=== PATIENT | male | born 1965 | race Caucasian/White ===

== ENCOUNTER 2017-12-31 12:33 | Emergency (ER) | payer BC ==
[~2017-12-31] VITALS: Ht 182.9 cm; Wt 90.0 kg
[2017-12-31] MEDS ORDERED: GEMCITABINE IV (12:46)
[2017-12-31] MEDS ORDERED: ADVIL200 MG PO (12:46)
[2017-12-31] MEDS ORDERED: OXYCODONE HCL5 MG PO (12:47)
[2017-12-31 13:28] LABS: IMMATURE GRANULOCYTES 1.1 % (0.0-5.0); MEAN CELL VOLUME 90.8 fL CALC (80.0-100.0); MEAN CORPUSCULAR HGB 28.6 pG CALC (26.0-32.0); MEAN CORPUSCULAR HGB CONC 31.5 g/L CALC (32.0-36.0); NEUT# 5.5 thou/uL (1.82-7.42); RED BLOOD COUNT 3.71 mill/uL (4.70-6.10); RED CELL DISTRI WIDTH 14.8 % (11.5-15.5)
[2017-12-31 13:33] LABS: HEMATOCRIT 33.7 % (39.0-50.0); HEMOGLOBIN 10.6 g/dl (14.0-18.0)
[2017-12-31 13:43] LABS: ALKALINE PHOSPHATASE 73 u/l (38-126); AMYLASE 67 u/l (30-110); ANION GAP 10 (6-22 (CALC)); BILIRUBIN, TOTAL 0.5 mg/dL (0.0-1.4); BUN 17 mg/dL (9-20); BUN/CREATININE RATIO 21 (12-20 (CALC)); CARBON DIOXIDE 34 mmol/l (22-30); CHLORIDE 98 mmol/l (95-108); CREATININE 0.8 mg/dL (0.7-1.3); GFR > 60 ML/MIN (>=60 (CALC)); GFR FOR AFR.AMER. > 60 ML/MIN (>=60 (CALC)); LIPASE 45 u/l (23-300); POTASSIUM 3.4 mmol/l (3.5-5.1); SGPT/ALT 77 u/l (21-72); SODIUM 139 mmol/l (137-146); TOTAL PROTEIN 6.9 g/dL (6.3-8.2)
[2017-12-31 13:59] LABS: ALBUMIN 3.7 g/dL (3.2-5.0); SGOT/AST 47 u/l (17-59)
[2017-12-31] MEDS ORDERED: PREVACID30 M1 PO (15:52)
[2017-12-31] MEDS ORDERED: ZOFRAN ODT4 MG PO (15:52)
[2017-12-31 16:03] VITALS: BP 118/74
[2017-12-31 16:03] LABS: URINE BILIRUBIN - DIPSTICK NEGATIVE (NEGATIVE); URINE BLOOD DIPSTICK NEGATIVE (NEGATIVE); URINE COLOR YELLOW; URINE GLUCOSE - DIPSTICK NEGATIVE (NEGATIVE); URINE KETONE NEGATIVE (NEGATIVE); URINE LEUK ESTERASE NEGATIVE (NEGATIVE); URINE NITRITE - DIPSTICK NEGATIVE (Negative); URINE PH 7.5 (4.5-8.0); URINE PROTEIN - DIPSTICK NEGATIVE (NEG-TRACE); URINE UROBILINOGEN - DIPSTICK 0.2 E.U./dL (0.2)
[2017-12-31 16:08] LABS: URINE CLARITY CLEAR
== END 2017-12-31 16:24 | disposition home or self-care (01) | DRG 392 ==
LOC: ED 12:33
PROVIDERS: Emergency Medicine
DX: R11.10 Vomiting, unspecified (principal); K59.00 Constipation, unspecified; Z85.118 Personal history of other malignant neoplasm of bronchus and lung
CPT/HCPCS: S0164

== ENCOUNTER 2018-01-26 08:24 | Inpatient (IN) | payer BC ==
--- NOTE | 2018-01-23 19:30 | NUR ---
BEDSIDE REPORT RECEIVED FROM MEHDI RÍOS. PT SITTING UP IN BED WITH FAMILY AT BEDSIDE; ALERT AND ORIENTED. C/O MODERATE RIGHT SHOULDER PAIN AND STATES THAT HE WOULD LIKE TO TAKE MORPHINE AT HS. RESPIRATIONS EVEN AND UNLABORED ON ROOM AIR. PLAN OF CARE DISCUSSED. PT ENCOURAGED TO VERBALIZE CONCERNS. STATES UNDERSTANDING AND VERBALIZES CONCERNS ABOUT MOVING HIS BOWELS. WARM PRUNE JUICE AND COFFEE OFFERED, HOWEVER, PT DECLINED AND STATES THAT HE WILL TALK TO THE MD IN THE MORNING ABOUT IT. SAFETY MEASURES IN PLACE. CALL LIGHT WITHIN REACH.
[~2018-01-26] VITALS: Ht 185.4 cm; Wt 82.0 kg
[~2018-01-26 08:24] MED LIST: ADVIL200 MG PO; GEMCITABINE IV; OXYCODONE HCL5 MG PO; PREVACID30 M1 PO; ZOFRAN ODT4 MG PO
[2018-01-26] MEDS ORDERED: OXYCONTIN10 MG PO (08:49)
--- NOTE | 2018-01-26 08:50 | NUR ---
PATIENT TO RADIOLOGY DEPARTMENT FROM TRIAGE.
--- NOTE | 2018-01-26 09:01 | NUR ---
PATIENT RETURNS FROM RADIOLOGY, AT BEDSIDE.
[2018-01-26 09:12] LABS: HEMATOCRIT 33.3 % (39.0-50.0); HEMOGLOBIN 10.6 g/dl (14.0-18.0); IMMATURE GRANULOCYTES 0.5 % (0.0-5.0); MEAN CELL VOLUME 89.3 fL CALC (80.0-100.0); MEAN CORPUSCULAR HGB 28.4 pG CALC (26.0-32.0); MEAN CORPUSCULAR HGB CONC 31.8 g/L CALC (32.0-36.0); NEUT# 10.37 thou/uL (1.82-7.42); RED BLOOD COUNT 3.73 mill/uL (4.70-6.10); RED CELL DISTRI WIDTH 15.4 % (11.5-15.5)
--- NOTE | 2018-01-26 09:28 | NUR ---
PATIENT REPORTS PAIN TO RIGHT FLANK/ BACK AREA RATES 7/10 AT THIS TIME. REPORTS BEING ON CHEMOTHERAPY FOR SKIN, LYMPH NODE CANCER. PATIENT VERBALIZED CONCERN FOR KIDNEY FUNCTION. INFORMED OF PATIENT REQUEST FOR PAIN MEDICATION AND RENAL FUNCTION.
--- NOTE | 2018-01-26 09:32 | NUR ---
XRAY AT BEDSIDE FOR CHEST 1V, PATIENT REFUSED EXAM.
[2018-01-26 09:33] LABS: ALBUMIN 3.9 g/dL (3.2-5.0); ALKALINE PHOSPHATASE 89 u/l (38-126); ANION GAP 12 (6-22 (CALC)); BILIRUBIN, TOTAL 0.4 mg/dL (0.0-1.4); BUN 19 mg/dL (9-20); BUN/CREATININE RATIO 19 (12-20 (CALC)); CARBON DIOXIDE 36 mmol/l (22-30); CHLORIDE 97 mmol/l (95-108); GFR > 60 ML/MIN (>=60 (CALC)); GFR FOR AFR.AMER. > 60 ML/MIN (>=60 (CALC)); LIPASE 218 u/l (23-300); SGOT/AST 59 u/l (17-59); SGPT/ALT 79 u/l (21-72); SODIUM 141 mmol/l (137-146); TOTAL PROTEIN 7.3 g/dL (6.3-8.2)
--- NOTE | 2018-01-26 09:45 | NUR ---
Pt reports nausea. RBVO for 12.5 mg phenergan ivp x 1 now.
--- NOTE | 2018-01-26 09:57 | NUR ---
PATIENT MEDICATED, TOLERATED WELL. PATIENT REPORTS PAIN 4/10 AT THIS TIME TO RIGHT SIDE OF BODY. +1 PITTING EDEMA NOTED TO RIGHT LOWER EXTERMITY. PATIENT REPORTS HAVING THIS XWEEKS. WILL CONTINUE TO MONITOR, CALL LIGHT WITHIN REACH. AT BEDSIDE.
--- NOTE | 2018-01-26 10:49 | NUR ---
PATIENT MEDICATED PER MD ORDER. POTASSIUM PILLS GIVEN WITH PUDDING. WILL CONTIUE TO MONITOR.
--- NOTE | 2018-01-26 11:10 | NUR ---
PT RESTING SUPINE WIHT EYES CLOSED. RESPONDS APPROPRIATELY. STATES PAIN LEVEL HAS IMPROVED TO 2/10.
--- NOTE | 2018-01-26 11:26 | NUR ---
INITIATED RECLAST IV ORDERED 200ML/HR WITH VENTED TUBING. EXPLAINED TO PT AND SPOUSE.
--- NOTE | 2018-01-26 11:26 | NUR ---
INIIIATED RECLAST IV @ 400ML/HR FOR 4MG/80ML. DISCUSSED WITH PT AND SPOUSE
--- NOTE | 2018-01-26 11:29 | NUR ---
EMPTIED URINAL OF 675CC CLEAR YELLOW URINE, UA OBTAINED
[2018-01-26 11:37] LABS: URINE BILIRUBIN - DIPSTICK NEGATIVE (NEGATIVE); URINE BLOOD DIPSTICK NEGATIVE (NEGATIVE); URINE CLARITY SL CLOUDY; URINE COLOR YELLOW; URINE GLUCOSE - DIPSTICK NEGATIVE (NEGATIVE); URINE KETONE NEGATIVE (NEGATIVE); URINE LEUK ESTERASE NEGATIVE (NEGATIVE); URINE NITRITE - DIPSTICK NEGATIVE (Negative); URINE PROTEIN - DIPSTICK NEGATIVE (NEG-TRACE); URINE UROBILINOGEN - DIPSTICK 0.2 E.U./dL (0.2)
--- NOTE | 2018-01-26 11:44 | NUR ---
EMPTIED URINAL OF 650CC PALE STRAW COLORED URINE. PT STATES PAIN IS RETURNING 7/10 TO LOW BACK
--- NOTE | 2018-01-26 12:22 | NUR ---
REPORT PROVIDED TO MEHDI RÍOS.
--- NOTE | 2018-01-26 12:32 | NUR ---
PT CAME FROM ER VIA STRETCHER BY ESE. STAND BY ASSIST TO SCALE THEN TO BED. IN ROOM. SAFETY PRECAUTIONS REINOFRCED AND CALL LIGHT IN REACH.
--- NOTE | 2018-01-26 12:39 | NUR ---
PT TRANFERRED TO [facility] [place] [place] IN STABLE CONDITION VIA STRETCHER WITH NURSE, MEHDI LYNN.
[2018-01-26 12:43] VITALS: BP 147/89
[2018-01-26 13:43] LABS: ANION GAP 8 (6-22 (CALC)); BUN 18 mg/dL (9-20); BUN/CREATININE RATIO 18 (12-20 (CALC)); CARBON DIOXIDE 38 mmol/l (22-30); CHLORIDE 100 mmol/l (95-108); GFR > 60 ML/MIN (>=60 (CALC)); GFR FOR AFR.AMER. > 60 ML/MIN (>=60 (CALC)); SODIUM 143 mmol/l (137-146)
--- NOTE | 2018-01-26 13:48 | NUR ---
NOTIFIED NIC MARTÍNEZ OF CALCIUM 13.5 FOR PT. NO ORDERES RECEIVED AT THIS TIME.
--- NOTE | 2018-01-26 16:03 | NUR ---
ASSESSMENT DONE TELE IN PLACE. RESPS EVEN AND UNLABORED. PT IS A&O X3. PT STATED PAIN IN RIGHT SHOULDER 11/21 BUT REFUSED PAIN MEDICATION AT THIS TIME. NS 200ML/HR INFUSING WELL. IN ROOM. CALL LIGHT IN REACH.
[2018-01-26 16:12] VITALS: BP 137/81
[2018-01-26 18:31] LABS: ANION GAP 8 (6-22 (CALC)); BUN 18 mg/dL (9-20); BUN/CREATININE RATIO 19 (12-20 (CALC)); CARBON DIOXIDE 37 mmol/l (22-30); CHLORIDE 101 mmol/l (95-108); GFR > 60 ML/MIN (>=60 (CALC)); GFR FOR AFR.AMER. > 60 ML/MIN (>=60 (CALC)); POTASSIUM 2.9 mmol/l (3.5-5.1); SODIUM 142 mmol/l (137-146)
[2018-01-26 21:06] VITALS: BP 143/89
--- NOTE | 2018-01-27 | NUR ---
PT ATTEMPTED TO HAVE A BM WITH NO SUCCESS. INDEPENDENT IN ROOM. STATES THAT MORPHINE WAS EFFECTIVE FOR PAIN. IV FLUIDS INFUSING WITHOUT DIFFICULTY; IV SITE APPEARS HEALTHY. NEW ORDERS FOR PO POTASSIUM AND IV MAGNESIUM WHICH IS INFUSING CURRENLTY; PT TOLERATING WELL. NO REQUESTS OR CONCERNS AT THIS TIME. REMAINS AT BEDSIDE. SAFETY MEASURES IN PLACE. CALL LIGHT WITHIN REACH.
[2018-01-27 00:50] VITALS: BP 140/87
--- NOTE | 2018-01-27 04:16 | NUR ---
PT ASLEEP AT THIS TIME WITH NO SIGNS OF DISTRESS. NO ACUTE CHANGES IN CONDITION THROUGHT THE NIGHT. SAFETY MEASURES IN PLACE. CALL LIGHT WITHIN REACH.
[2018-01-27 04:51] VITALS: BP 139/86
[2018-01-27 04:58] LABS: HEMATOCRIT 32.3 % (39.0-50.0); HEMOGLOBIN 10.3 g/dl (14.0-18.0); MEAN CORPUSCULAR HGB 28.7 pG CALC (26.0-32.0); MEAN CORPUSCULAR HGB CONC 31.9 g/L CALC (32.0-36.0); RED BLOOD COUNT 3.59 mill/uL (4.70-6.10); RED CELL DISTRI WIDTH 15.9 % (11.5-15.5)
[2018-01-27 05:20] LABS: ALBUMIN 3.2 g/dL (3.2-5.0); ALKALINE PHOSPHATASE 86 u/l (38-126); ANION GAP 11 (6-22 (CALC)); BILIRUBIN, TOTAL 0.5 mg/dL (0.0-1.4); BUN 17 mg/dL (9-20); BUN/CREATININE RATIO 19 (12-20 (CALC)); CARBON DIOXIDE 31 mmol/l (22-30); CHLORIDE 103 mmol/l (95-108); CREATININE 0.9 mg/dL (0.7-1.3); GFR > 60 ML/MIN (>=60 (CALC)); GFR FOR AFR.AMER. > 60 ML/MIN (>=60 (CALC)); POTASSIUM 3.4 mmol/l (3.5-5.1); SGOT/AST 41 u/l (17-59); SGPT/ALT 58 u/l (21-72); SODIUM 142 mmol/l (137-146); TOTAL PROTEIN 6.1 g/dL (6.3-8.2)
[2018-01-27 05:21] LABS: MAGNESIUM 2.3 mg/dL (1.6-2.3)
--- NOTE | 2018-01-27 07:10 | NUR ---
REPORT RECEIVED FROM MEHDI RAMÍREZ;PT APPEARS TO BE SLEEPING IN SEMI FOWLERS POSITION WITH SPOUSE AT BEDSIDE;RESPIRATIONS EVEN AND UNLABORED ON RA;NO S/S OF DISTRESS NOTED;IV FLUIDS INFUSING @ 200ML/HR WITH EASE;TELE MONITOR IN PLACE;FALL PRECAUTIONS NOTED WITH BED IN THE LOWEST POSITION;CALL LIGHT IN REACH;WILL CONTINUE TO MONITOR
[2018-01-27 08:35] VITALS: BP 126/80
--- NOTE | 2018-01-27 08:35 | NUR ---
PT RESTING IN SEMI FOWLERS POSITION WITH SPOUSE AT BEDSIDE;PT COMPLAINS OF ABDOMINAL DISCOMFORT DUE TO LACK OF BM,LAST BM 01/22/18;ANNITA LOPEZ,ANRP MADE AWARE BY MEHDI CARBALLO AND NEW ORDERS FOR MOM,MIRLAX,GLYCERIN SUP RECEIVED AND TO BE ADMINISTERED;VS OBTAINED AND ASSESSMENT COMPLETED;CURRENT TEMP 100.0,BLANKETS REMOVED,AC LOWERED AND PT TO GET A COOL SHOWER;RESPIRATIONS EVEN AND UNLABORED ON RA,CLEAR LUNG SOUNDS NOTED;ABDOMEN SOFT ON PALPATION AND ACTIVE IN ALL 4 QUADRANTS,TENDERNESS NOTED;STRONG PEDAL PULSES;#20G TO RAC INFUSING NS @ 100ML/HR,SITE APPEARS HEALTHY;PT MEDICATED WITH PRN MORPHINE 2MG IVP PER REQUEST FOR RT SHOULDER AND ABDOMINAL PAIN RATING 7/10 ON THE PAIN SCALE;TELE MONITOR NOTED;SKIN INTACT;CHOCOLATE MILK PROVIDED PER REQUEST;ENCOURAGED PT TO CALL FOR ASSISTANCE IF NEEDED;CALL LIGHT IN REACH;WILL CONTINUE TO MONITOR
--- NOTE | 2018-01-27 10:10 | NUR ---
TEMP RE-CHECK 100.1,TYLENOL 650MG PO ADMINISTERED AT THIS TIME;BLANKETS REMOVED AND AC LOWERED;WILL MONITOR FOR EFFECTIVENESS
[2018-01-27 11:00] VITALS: BP 123/76
--- NOTE | 2018-01-27 11:02 | NUR ---
TEMP RE-CHECK 99.4
--- NOTE | 2018-01-27 11:40 | NUR ---
PT APPEARS TO BE SLEEPING IN HIGH FOWLERS POSITION,WAKES TO VERBAL STIMULI;PT REPORTS PAIN HAS DECREASED AT THIS TIME;RESPIRATIONS EVEN AND UNLABORED ON RA;IV SITE REMAINS PATENT TO RAC INFUSING NS WITH EASE;TELE MONITOR IN PLACE;NO NEW COMPLAINTS;ENCOURAGED TO CALL FOR ASSISTANCE IF NEEDED;CALL LIGHT IN REACH;WILL CONTINUE TO MONITOR
--- NOTE | 2018-01-27 14:45 | NUR ---
PT RESTING IN SEMI FOWLERS POSITION WITH SPOUSE AT BEDSIDE;PT REPORTS RT SHOULDER AND ABDOMINAL PAIN RATING 7/10 ON THE PAIN SCALE AND REQUESTS PAIN MEDICATION;PT MEDICATED WITH PRN DILAUDID 2MG IVP, S/S OF MEDICATION REACTION DISCUSSED AND PT VERBALIZES UNDERSTANDING R/T FIRST TIME TAKING THIS MEDICATION;I.S. AT BEDSIDE AND PT DEMONSTRATED USE;PT EDUCATED ON 10X PER HOUR WHILE AWAKE,GOAL SET TO 1000.PT DENIES ANY OTHER CURRENT NEEDS;WILL CONTINUE TO MONITOR
[2018-01-27 15:02] LABS: URINE BILIRUBIN - DIPSTICK NEGATIVE (NEGATIVE); URINE BLOOD DIPSTICK TRACE-LYSED (NEGATIVE); URINE CLARITY CLEAR; URINE COLOR YELLOW; URINE GLUCOSE - DIPSTICK NEGATIVE (NEGATIVE); URINE KETONE NEGATIVE (NEGATIVE); URINE LEUK ESTERASE NEGATIVE (NEGATIVE); URINE NITRITE - DIPSTICK NEGATIVE (Negative); URINE PROTEIN - DIPSTICK NEGATIVE (NEG-TRACE); URINE SPECIFIC GRAVITY 1.015; URINE UROBILINOGEN - DIPSTICK 0.2 E.U./dL (0.2)
--- NOTE | 2018-01-27 15:20 | NUR ---
PT REPORTS THAT PAIN TO RIGHT SHOULDER AND ABDOMEN HAS DECREASED TO A 2/10 ON THE PAIN SCALE;RESPIRATIONS EVEN AND UNLABORED ON RA,WITH SLIGHT WHEEZING STARTING AT THIS TIME;PT MADE AWARE OF PRN ROBITUSSIN ORDER AND VERBALIZES UNDERSTANDING IF NEEDED,REMINDED TO USE I.S. @ BEDSIDE;IV FLUIDS CONTINUE TO INFUSE WITH EASE TO RAC;TELE MONITOR IN PLACE;PT STATES "I JUST WANNA SLEEP NOW";PT INSTRUCTED TO CALL FOR ASSISTANCE IF NEEDED;COMMODE AT BEDSIDE;FALL PRECAUTIONS IN PLACE WITH CALL LIGHT IN REACH;WILL CONTINUE TO MONITOR
[2018-01-27 16:00] VITALS: BP 123/79
--- NOTE | 2018-01-27 19:50 | NUR ---
BEDSIDE REPORT RECEIVED FROM RUBENS FONSECA. PT SITTING UP IN BED WITH AT BEDSIDE; ALERT AND ORIENTED. CURRENTLY USING IS. C/O MILD RIGHT SHOULDER PAIN AND REQUESTS PAIN MEDS TO BE GIVEN AT HS. ALSO DECLINES MIDNIGHT VS AT THIS TIME STATING THAT HE WANTS TO SLEEP. RESPIRATIONS EVEN AND UNLABORED ON ROOM AIR. PLAN OF CARE REVIEWED. PT ENCOURAGED TO VERBALIZE CONCERNS. STATES UNDERSTANDING. SAFETY MEAUSURES IN PLACE. CALL LIGHT WITHIN REACH.
[2018-01-27 20:12] VITALS: BP 138/79
--- NOTE | 2018-01-27 22:59 | NUR ---
PT'S OXYGEN SATURATION DROPS INTO THE 70'S WHILE ASLEEP AND HE STATES THAT IT WAKES HIM UP. OXYGEN APPLIED AT 2L VIA NC. WILL REASSESS.
--- NOTE | 2018-01-28 00:05 | NUR ---
PT SITTING UP IN BED WITH EYES CLOSED AND NO SIGNS OF DISTRESS. RESPIRATIONS EVEN AND UNLABORED ON OXYGEN. REMAINS AT BEDSIDE. PT DECLINED MIDNIGHT VITALS; CURRENTLY SR 97 ON TELEMETRY. ALL REQUESTS AND CONCERNS MET. INDEPENDENT IN ROOM. IV FLUIDS INFUSING WITHOUT DIFFICULTY; IV SITE APPEARS HEALTHY. SAFETY MEASURES IN PLACE. CALL LIGHT WITHIN REACH.
--- NOTE | 2018-01-28 04:19 | NUR ---
PT ASLEEP AT THIS TIME WITH NO SIGNS OF DISTRESS. RESPIRATIONS EVEN AND UNLABORED OXYGEN. NO ACUTE CHANGES IN CONDITION THROUGHOUT THE NIGHT. SAFETY MEASURES IN PLACE. CALL LIGHT WITHIN REACH.
[2018-01-28 04:56] VITALS: BP 127/81
--- NOTE | 2018-01-28 07:16 | NUR ---
REPORT RECEIVED BY LUIS ENRIQUE. PT IS SLEEPING IN BED WITH NO S/S OF DISTRESS NOTED. CALL LIGHT IN REACH.
[2018-01-28 07:44] VITALS: BP 127/82
[2018-01-28 08:23] LABS: HEMATOCRIT 27.8 % (39.0-50.0); HEMOGLOBIN 8.8 g/dl (14.0-18.0); IMMATURE GRANULOCYTES 0.6 % (0.0-5.0); MEAN CELL VOLUME 90.6 fL CALC (80.0-100.0); MEAN CORPUSCULAR HGB 28.7 pG CALC (26.0-32.0); MEAN CORPUSCULAR HGB CONC 31.7 g/L CALC (32.0-36.0); NEUT# 8.28 thou/uL (1.82-7.42); RED BLOOD COUNT 3.07 mill/uL (4.70-6.10)
--- NOTE | 2018-01-28 08:41 | NUR ---
ASSESSMENT DONE . MEDICATED PT WITH DILAUDID FOR PAIN SEE EMAR. PT LUNG SOUND CLEAR/WHEEZES. O2 AT 2L/MIN VIA NC. PT IS A&O X3. TELE IN PLACE. PT DENIES ANY OTHER NEEDS AT THIS TIME. SAFETY PRECAUTIONS REINFORCED AND CALL LIGHT IN REACH.
[2018-01-28 08:49] LABS: ANION GAP 10 (6-22 (CALC)); BUN 15 mg/dL (9-20); BUN/CREATININE RATIO 22 (12-20 (CALC)); CARBON DIOXIDE 30 mmol/l (22-30); CHLORIDE 102 mmol/l (95-108); CREATININE 0.7 mg/dL (0.7-1.3); GFR > 60 ML/MIN (>=60 (CALC)); GFR FOR AFR.AMER. > 60 ML/MIN (>=60 (CALC)); POTASSIUM 3.3 mmol/l (3.5-5.1); SODIUM 138 mmol/l (137-146)
[2018-01-28 12:00] VITALS: BP 132/84
--- NOTE | 2018-01-28 12:35 | NUR ---
MEDICATED PT WITH DILAUDID FOR PAIN SEE EMAR. PT DENIES ANY OTHER NEEDS AT THIS TIME. IN ROOM. CALL LIGHT IN REACH.
--- NOTE | 2018-01-28 15:30 | NUR ---
PT IS RESTING IN BED VISITING WITH FAMILY. PT DENIES NEEDS AT THIS TIME. CALL LIGHT IN REACH.
[2018-01-28 15:45] VITALS: BP 152/97
--- NOTE | 2018-01-28 19:50 | NUR ---
PATIENT RESTING IN BED WITH O2 VIA NASAL CANNULAIN PLACE. PATIENT IS AWAKE ALERT AND ORIENTEDX3 WITH HOARSE SPEECH. PATIENT C/O PAIN TO RIGHT NECK, RIGHT SHOULDER AND SIDE-7/10, MEDICATED WITH DILAUDID 2MG IVP VIA RIGHT AC IV SITE. SITE IS HEALTHY WITH IVF NS PATENT AND INFUSING AT 100CC/HR. TELE MONITORING DEVICE IN PLACE-ST. VOIDING QS YELLOW URINE IN URINAL. SOME SLIGHT SWELLING NOTED TO UE-PULSES ARE PRESENT AND CMS WNL.PATIENT WITH DIMINISHED BS TO RIGHT LUNG. ENCOURAGED USE OF IS Q1H WHILE AWAKE X REPS OF 10. ABLE TO DEMONSTRATE USE ALTHOUGH IS WEAK. SAFETY PRECAUTIONS REINFORCED. CALL LIGHT IN REACH. CALL LIGHT IN REACH.
[2018-01-28 20:33] VITALS: BP 130/83
--- NOTE | 2018-01-28 21:30 | NUR ---
PATIENT MEDICATED WITH LOPRESSOR 25MG PO ORDERED. PATIENT AND EDUCATED ON INDICATIONS. VERBALIZED UNDERSTANDING. PROVIDED WITH KYRGYZ ICE PER PATIENT REQUEST. LEFT ARM ELEVATED ON PILLOW FOR SWELLING. CALL LIGHT IN REACH. WILL CONT TO MONITOR.
--- NOTE | 2018-01-28 23:57 | NUR ---
PATIENT RESTING IN BED-WAS ABLE TO GET WASHED UP WITH THE ASSIST OF HIS . LEFT ARM WITH SWELLING NOTED-ELEVATED ON PILLOWS AND ICE PACK PROVIDED. PULSE IS STRONG CMS TO FINGERS WNL. DENIES ANY PAIN TO THE LEFT ARM. PATIENT C/O PAIN TO RIGHT NECK AND SHOULDER. MEDICATED WITH DILAUDID 2MG IVP FOR 7/10 PAIN SCALE. STAYING THE NIGHT. OFFERED COT BUT RESTING ON SOFA. IVF NS PATENT AND INFUSING VIA LEFT AC AT 100CC/HR. O2 VIA NASAL CANNULA IN PLACE AT 2LPM. SAFETY PRECAUTIONS REINFORCED. CALL LIGHT IN REACH. WILL CONT TO MONITOR.
[2018-01-29] VITALS (7 sets, daily range): BP systolic 113–148; BP diastolic 71–89
--- NOTE | 2018-01-29 04:08 | NUR ---
PATIENT WITH NO COMPLAINTS AT THIS TIME. AT BEDSIDE. O2 VIA NASAL CANNULA IN PLACE. IVF NS PATENT AND INFUSING AT 100CC/HR. LEFT ARM REMAINS ELEVATED ON PILLOWS. CALL LIGHT IN REACH. WILL CONT TO MONITOR.
--- NOTE | 2018-01-29 04:50 | NUR ---
PATIENT RESTING IN BED- AT BEDSIDE. PATIENT MEDICATED FOR 8/10 ON PAIN SCALE TO RIGHT NECK, SHOULDER AND ARM. LEFT ARM REMAINS SWOLLEN-ELEVATED 0ON PILLOWS. CALL LIGHT IN REACH. WILL CONT TO MONITOR.
[2018-01-29 05:30] LABS: HEMATOCRIT 28.6 % (39.0-50.0); HEMOGLOBIN 8.8 g/dl (14.0-18.0); IMMATURE GRANULOCYTES 0.7 % (0.0-5.0); MEAN CELL VOLUME 93.8 fL CALC (80.0-100.0); MEAN CORPUSCULAR HGB 28.9 pG CALC (26.0-32.0); MEAN CORPUSCULAR HGB CONC 30.8 g/L CALC (32.0-36.0); NEUT# 5.97 thou/uL (1.82-7.42); RED BLOOD COUNT 3.05 mill/uL (4.70-6.10); RED CELL DISTRI WIDTH 16.4 % (11.5-15.5)
[2018-01-29 05:42] LABS: ALBUMIN 2.9 g/dL (3.2-5.0); ALKALINE PHOSPHATASE 101 u/l (38-126); ANION GAP 11 (6-22 (CALC)); BILIRUBIN, TOTAL 0.4 mg/dL (0.0-1.4); BUN 15 mg/dL (9-20); BUN/CREATININE RATIO 21 (12-20 (CALC)); CARBON DIOXIDE 29 mmol/l (22-30); CHLORIDE 100 mmol/l (95-108); CREATININE 0.7 mg/dL (0.7-1.3); GFR > 60 ML/MIN (>=60 (CALC)); GFR FOR AFR.AMER. > 60 ML/MIN (>=60 (CALC)); POTASSIUM 3.5 mmol/l (3.5-5.1); SGOT/AST 39 u/l (17-59); SGPT/ALT 60 u/l (21-72); SODIUM 136 mmol/l (137-146); TOTAL PROTEIN 5.8 g/dL (6.3-8.2)
--- NOTE | 2018-01-29 07:05 | NUR ---
BEDSIDE REPORT RECEIVED BY FRANCINE. PT IS RESTING IN BED WITH NO S/S OF DISTRESS NOTED. PT DENIES NEEDS AT THIS TIME. CALL LIGHT IN REACH.
--- NOTE | 2018-01-29 09:31 | NUR ---
ASSESSMENT DONE . LUNG SOUND DIMINISHED. O2 AT 2L/MIN VIA NC. MEDICATED WITH DILAUDID FOR PAIN SEE EMAR. NS 100ML/HR INFUSING WELL. IN ROOM. SAFETY PRECAUTIONS REINFORCED AND CALL LIGHT IN REACH.
--- NOTE | 2018-01-29 12:25 | NUR ---
PT IS SITTING IN THE SIDE OF THE BED. PT STATED PAIN IS 4/10 IN NECK BUT PT REFUSED PAIN MEDICATION AT THIS TIME. CALL LIGHT IN REACH.
--- NOTE | 2018-01-29 16:05 | NUR ---
PT IS RESTING IN BED AND DENIES NEEDS AT THIS TIME. CALL LIGHT IN REACH.
--- NOTE | 2018-01-29 22:00 | NUR ---
PATIENT RESTING IN BED AFTER TAKING SHOWER WITH ASSIST OF HIS . PATIENT STATES THAT HE DID HAVE ANOTHER BM TONIGHT-ABD IS SOFT WITH ACTIVE BS. VOIDING QS YELLOW URINE. PATIENT MEDICATED FOR PAIN WITH DILAUDID 2MG IVP VIA RIGHT AC IV SITE-HEALTHY SITE AT THIS TIME. CONT TO WEAR O2 VIA NASAL CANNULA AT 2LPM. PATIENT CONT WITH DIMINISHED BS TO RIGHT LUNG WITH CLEAR TO THE LEFT. LEFT ARM WITH SOME SWELLING-LESS THAN LAST NIGHT-ELEVATED ON PILLOW. CMS TO LEFT FINGERS WNL AND RADIAL PULSES ARE STRONG. SAFETY PRECAUTIONS REINFORCED. CALL LIGHT IN REACH. WILL CONT TO MONITOR.
--- NOTE | 2018-01-29 23:28 | NUR ---
APPEARS SLEEPING AT THIS TIME WITH HOB ELEVATED AND O2 VIA NASAL CANNULA IN PLACE. RESTING ON SOFA. CALL LIGHT IN REACH.WILL CONT TO MONITOR.
[2018-01-30 00:05] VITALS: BP 120/75
[2018-01-30 01:00] VITALS: BP 153/88
--- NOTE | 2018-01-30 03:32 | NUR ---
PATIENT C/O SEVERE RIGHT NECK AND SHOULDER PAIN-8/10 ON PAIN SCALE. MEDICATED WITH DIDLAUDID 2MG IVP FOR WILI. PROVIDED WITH COLD PACK FOR COMFORT. CALL LIGHT IN REACH. WILL CONT TO MONITOR.
[2018-01-30 04:43] VITALS: BP 131/78
--- NOTE | 2018-01-30 07:28 | NUR ---
REPORT RECEIVED BY FRANCINE. MEDICATED PT WITH DILUDID FOR PAIN IN NECK 02/21. PT DENIES ANY OTHER NEEDS AT THIS TIME. CALL LIGHT IN REACH.
[2018-01-30 08:00] VITALS: BP 143/70
--- NOTE | 2018-01-30 08:05 | NUR ---
PT IS SITTING IN THE SIDE OF THE BED. ASSESSMENT DONE TELE IN PLACE. LUNG SOUND CLEAR/DIMINISHED. # 20 RAC THAT APPEAR HEALTHY. IN ROOM. SAFETY PRECAUTIONS REINFORCED AND CALL LIGHT IN REACH.
[2018-01-30 09:36] LABS: HEMATOCRIT 26.5 % (39.0-50.0); HEMOGLOBIN 8.4 g/dl (14.0-18.0); IMMATURE GRANULOCYTES 0.6 % (0.0-5.0); MEAN CELL VOLUME 90.8 fL CALC (80.0-100.0); MEAN CORPUSCULAR HGB 28.8 pG CALC (26.0-32.0); MEAN CORPUSCULAR HGB CONC 31.7 g/L CALC (32.0-36.0); NEUT# 7.08 thou/uL (1.82-7.42); RED BLOOD COUNT 2.92 mill/uL (4.70-6.10); RED CELL DISTRI WIDTH 15.9 % (11.5-15.5)
[2018-01-30 09:47] LABS: ALKALINE PHOSPHATASE 112 u/l (38-126); ANION GAP 9 (6-22 (CALC)); BILIRUBIN, TOTAL 0.3 mg/dL (0.0-1.4); BUN 10 mg/dL (9-20); BUN/CREATININE RATIO 18 (12-20 (CALC)); CARBON DIOXIDE 33 mmol/l (22-30); CHLORIDE 98 mmol/l (95-108); CREATININE 0.5 mg/dL (0.7-1.3); GFR > 60 ML/MIN (>=60 (CALC)); GFR FOR AFR.AMER. > 60 ML/MIN (>=60 (CALC)); POTASSIUM 3.3 mmol/l (3.5-5.1); SGOT/AST 37 u/l (17-59); SGPT/ALT 58 u/l (21-72); SODIUM 137 mmol/l (137-146); TOTAL PROTEIN 5.8 g/dL (6.3-8.2)
--- NOTE | 2018-01-30 10:19 | NUR ---
MEDICATED PT WITH DILUDID FOR PAIN SEE EMAR. LEFT ARM ELEVATED IN PILLOWS. PT DENIES ANY OTHER NEEDS AT THIS TIME. IN ROOM. CALL LIGHT IN REACH.
--- NOTE | 2018-01-30 14:00 | NUR ---
PT IS FEELING ANXIOUS TOOK OFF HIS TELE AND GOWN. PT DRESS HIM SELF WITH HIS OWN CLOTHS. AND DAUGHTER IN ROOM. A WHEELCHAIR OBTAIN AND ASSISTED PT TO THE WHEELCHAIR WITH O2 AT 2L/MIN VIA NC. TOOK PT FOR A RIDE IN THE HALLWAYS AND FAMILY AT SIDE. PT STATED THAT HE WAS NOT APPLYING TELE BACK. PT DENIES ANY OTHER NEEDS. NOTIFIED AND ORDERS RECEIVED TO MD TELE.
[2018-01-30 16:00] VITALS: BP 142/84
--- NOTE | 2018-01-30 16:00 | NUR ---
PT IS RESTING IN BED AND FAMILY IN ROOM. PT DENIES NEEDS AT THIS TIME. CALL LIGHT IN REACH.
--- NOTE | 2018-01-30 19:55 | NUR ---
PATIENT SITTING UP IN BED WITH DAUGHTER AT BEDSIDE. AWAKE ALERT AND ORIENTEDX3. PATIENT C/O RIGHT NECK AND SHOULDER PAIN-01/21. MEDICATED WITH DILAUDID 2MG IVP VIA LEFT HAND IV SITE. SITE APPEARS HEALTHY AT THIS TIME. PATIENT WITH O2 VIA NASAL CANNULA IN PLACE. LEFT ARM REMAINS SWOLLEN AND REMAINS ELEVATED ON PILLOW. RADIAL PULSE STRONG, CMS TO LEFT FINGERS WNL. PATIENT STATES THAT HE HAD A COU[PLE LOOSE BM'S TODAY AND DENIES ANY DIFFICULTY WITH URINATION. ABD IS SOFT WITH BS+. RIGHT LUNG REMAINS DIMINISHED AND LEFT LOBE CLEAR. DISCUSSED PAIN MANAGMENT REGUARDING USING OXYCONTIN PRN-PATIENT WITH AGREEMENT OF PLAN. CALL LIGHT IN REACH. WILL CONT TO MONITOR.
[2018-01-30 20:00] VITALS: BP 128/88
--- NOTE | 2018-01-30 23:45 | NUR ---
PATIENT SITTING UP IN CHAIR WITH AT THIS TIME. PATIENT DECLINES RESTORIL AT THIS TIME. MEDICATED WITH MIRALAX FOR TREATMENT OF CONSTIPATION. MEDICATED WITH MOTRIN 600MG PO FOR PAIN TO RIGHT NECK AND SHOULDER. EXPRESSING CONCERNS REGUARDING FURTHER TREATMENT AND NEEDS. SPOKE REGUARDING DNR STATUS AND HOSPICE. CASE MANAGEMENT CONSULT IN PLACE. ALLOWED TO VERBALIZES HER CONCERNS. WILL CONT TO MONITOR.
--- NOTE | 2018-01-31 03:16 | NUR ---
PATIENT RESTING IN BED WITH O2 VIA NASAL CANNULA IN PLACE-APPEARS SLEEPING. RESTING ON SOFA. CALL LIGHT IN REACH. WILL CONT TO MONITOR.
--- NOTE | 2018-01-31 05:00 | NUR ---
PATIENT RESTING IN BED WITH O2 VIA NASAL CANNULA IN PLACE AT 2LPM. PATIENT WITH C/O RIGHT NECK AND SHOULDER PAIN 7/10 ON PAIN SCALE. PATIENT MEDICATED WITH DILAUDID 2MG IVP FOR PAIN. RESTING ON SOFA. CALL LIGHT IN REACH. WILL CONT TO MONITOR.
[2018-01-31 05:25] VITALS: BP 139/87
[2018-01-31 07:20] LABS: HEMATOCRIT 28.7 % (39.0-50.0); HEMOGLOBIN 9.1 g/dl (14.0-18.0); MEAN CELL VOLUME 90.3 fL CALC (80.0-100.0); MEAN CORPUSCULAR HGB 28.6 pG CALC (26.0-32.0); MEAN CORPUSCULAR HGB CONC 31.7 g/L CALC (32.0-36.0); RED BLOOD COUNT 3.18 mill/uL (4.70-6.10); RED CELL DISTRI WIDTH 15.9 % (11.5-15.5)
[2018-01-31 07:56] LABS: ANION GAP 12 (6-22 (CALC)); BUN 6 mg/dL (9-20); BUN/CREATININE RATIO 11 (12-20 (CALC)); CARBON DIOXIDE 33 mmol/l (22-30); CHLORIDE 97 mmol/l (95-108); CREATININE 0.6 mg/dL (0.7-1.3); GFR > 60 ML/MIN (>=60 (CALC)); GFR FOR AFR.AMER. > 60 ML/MIN (>=60 (CALC)); POTASSIUM 3.1 mmol/l (3.5-5.1); SODIUM 139 mmol/l (137-146)
[2018-01-31 08:00] VITALS: BP 147/77
--- NOTE | 2018-01-31 09:00 | NUR ---
PT SEEN AWAKE, ALERT, APPEARS WEAK. HAS BEEN AT BEDSIDE. PT MEDICATED FOR PAIN AND PLAN LAID OUT TO USE THE MEDS TO MAKE HIM COMFORTABLE.
--- NOTE | 2018-01-31 13:00 | NUR ---
POTASSIUM IV WAS BURNING HIS ARM, SLOWED DOWN AND IS TOLERABLE NOW. PT POSTPONED ADMINISTRATION OF MORE DILAUDID, SAYING THAT HE COULD WAIT.
[2018-01-31 16:30] VITALS: BP 136/85
--- NOTE | 2018-01-31 17:31 | NUR ---
PT AWARE OF PENDING TRANSFER TO [facility] FOR CT SCAN AND BACK. PT DELAYS RECEIVING PAIN MED UNTIL JUST BEFORE HE IS PICKED UP. FAMILY AT BEDSIDE.
--- NOTE | 2018-01-31 18:43 | NUR ---
PT LEAVES AT THIS TIME FOR [facility] TRANSPORT FOR CT SCAN.
--- NOTE | 2018-01-31 19:42 | NUR ---
REPORT GIVEN BY YESSICA HARDING. PATIENT CURRENTLY AT [facility] FOR A CT SCAN.
[2018-01-31 22:26] VITALS: BP 154/88
--- NOTE | 2018-01-31 23:00 | NUR ---
PT ARRIVED BACK TO UNIT AT 2222 VIA WHEELCHAIR WITH TRANSPORT STAFF FROM [facility] FOR CT SCAN. NEW IV PLACED BY CT STAFF AND SITE TO LW D/C'Vanessa. HS MEDS GIVEN ALONG WITH DILAUDID. ZOFRAN ALSO GIVEN FOR SMALL EMESIS; PT STATES HE THINKS THE AMBULANCE RIDE MADE HIM NAUSEOUS. RESPIRATIONS EVEN AND LABORED ON OXYGEN VIA NC. CT RESULTS CALLED TO DR. SAN. PT NOW RESTING IN BED WITH AT BEDSIDE. PT'S IS TEARFUL AT TIMES AND STATES, "WELL HE IS PROBABLY GOING TO BE GONE SOON." PLAN OF CARE REVIEWED. PT ENCOURAGED TO VERBALIZE CONCERNS. STATES UNDERSTANDING. SAFETY MEASURES IN PLACE. CALL LIGHT WITHIN REACH.
--- NOTE | 2018-02-01 00:36 | NUR ---
PT RESTING IN BED WITH EYES CLOSED; RESTORIL GIVEN PER REQUEST AT 0000. RESPIRATIONS NOW EVEN AND UNLABORED ON OXYGEN. IV FLUIDS INFUSING WITHOUT DIFFICULTY; IV SITE APPEARS HEALTHY. NO REQUESTS OR CONCERNS AT THIS TIME. SAFETY MEASURES IN PLACE. CALL LIGHT WITHIN REACH.
--- NOTE | 2018-02-01 01:36 | NUR ---
PT WOKE UP AND AMBULATED TO THE BATHROOM, PULLING OUT HIS IV. DECLINED NEW IV SITE AT THIS TIME. PT IS EXPERIENCING MILD CONFUSION, EASILY REORIENTED. STATES THAT SHE THINKS THE RESTORIL WAS TOO MUCH FOR HIM. WILL CONTINUE TO MONITOR FOR SAFETY. CALL LIGHT SYSTEM REVIEWED AND WITHIN REACH.
[2018-02-01 04:00] VITALS: BP 152/85
--- NOTE | 2018-02-01 04:00 | NUR ---
PT AWAKE AT THIS TIME AND STILL HAS BOUTS OF CONFUSION; EASILY REORIENTED. REMAINS AT BEDSIDE. C/O MILD RIGHT SHOULDER PAIN AT THIS TIME. RESPIRATIONS EVEN AND SLIGHTLY LABORED ON OXYGEN. SAFETY MEASURES IN PLACE. CALL LIGHT WITHIN REACH.
[2018-02-01 05:11] LABS: HEMATOCRIT 31.1 % (39.0-50.0); HEMOGLOBIN 9.7 g/dl (14.0-18.0); IMMATURE GRANULOCYTES 0.6 % (0.0-5.0); MEAN CELL VOLUME 90.9 fL CALC (80.0-100.0); MEAN CORPUSCULAR HGB 28.4 pG CALC (26.0-32.0); MEAN CORPUSCULAR HGB CONC 31.2 g/L CALC (32.0-36.0); NEUT# 6.9 thou/uL (1.82-7.42); RED BLOOD COUNT 3.42 mill/uL (4.70-6.10); RED CELL DISTRI WIDTH 16.3 % (11.5-15.5)
--- NOTE | 2018-02-01 05:30 | NUR ---
ATTEMPTED TO START ANOTHER IV INFORMING THE PT AND THAT HE HAS MEDICATIONS DUE THIS AM THAT ARE INTRAVENOUS. STATES THAT SHE WANTS TO WAIT AND PUT IT IN LATER SINCE PT IS "STILL A LITTLE GROGGY FROM THE SLEEPING PILL LAST NIGHT." WILL PASS ON TO DAY SHIFT.
[2018-02-01 05:35] LABS: ALBUMIN 3.3 g/dL (3.2-5.0); ALKALINE PHOSPHATASE 112 u/l (38-126); BILIRUBIN, TOTAL 0.3 mg/dL (0.0-1.4); BUN 7 mg/dL (9-20); BUN/CREATININE RATIO 11 (12-20 (CALC)); CARBON DIOXIDE 31 mmol/l (22-30); CHLORIDE 100 mmol/l (95-108); CREATININE 0.6 mg/dL (0.7-1.3); GFR > 60 ML/MIN (>=60 (CALC)); GFR FOR AFR.AMER. > 60 ML/MIN (>=60 (CALC)); SGOT/AST 38 u/l (17-59); SGPT/ALT 52 u/l (21-72); SODIUM 140 mmol/l (137-146); TOTAL PROTEIN 6.5 g/dL (6.3-8.2)
[2018-02-01 05:42] LABS: ANION GAP 14 (6-22 (CALC)); POTASSIUM 4.5 mmol/l (3.5-5.1)
[2018-02-01 07:41] VITALS: BP 140/71
--- NOTE | 2018-02-01 07:46 | NUR ---
REPORT RECEIVED FROM MEHDI RAMÍREZ. PT SUPINE IN BED. REPORTS RIGHT CHEST, NECK AND SHOULDER PAIN. DILAUDID IV ADMINISTERED. AT BEDSIDE. PLAN OF CARE DISUCSSED. FALL PRECAUTIONS REINFORCED. CALL LIGHT REVIEWED AND IN REACH. REPORTING OF CONCERNS ENCOURAGED. PT STATES UNDERSTANDING.
[2018-02-01 09:22] VITALS: BP 140/71
--- NOTE | 2018-02-01 10:44 | NUR ---
DR. SAN IN TO SEE PT AT THIS TIME.
[2018-02-01] MEDS ORDERED: AUGMENTIN875TAB PO (13:34)
[2018-02-01] MEDS ORDERED: AMBIEN5 MG PO (13:34)
--- NOTE | 2018-02-01 14:00 | NUR ---
DR. SAN IN TO SEE PT AT THIS TIME. DISCHARGE HOME DISCUSSED AND AGREED UPON BY BOTH. DISCHARGE PAPERWORK REVIEWED AND SIGNED BY PT.
--- NOTE | 2018-02-01 15:09 | NUR ---
Discharge instructions given. Patient verbalizes understanding of same. Discharged in stable condition via Wheelchair to Home with spouse. All belongings sent with pt.
== END 2018-02-01 15:09 | disposition home or self-care (01) | DRG 640 ==
LOC: ED 08:24 → ED-I 11:06 → ED 11:40 → MS2 11:41
PROVIDERS: Emergency Medicine; General Practice; Internal Medicine Geriatric Medicine; Nurse Practitioner Family; ADMIT Internal Medicine; ATTEND Internal Medicine
DX: E83.52 Hypercalcemia (principal); J18.9 Pneumonia, unspecified organism; C79.51 Secondary malignant neoplasm of bone; C78.01 Secondary malignant neoplasm of right lung; E87.6 Hypokalemia; E83.42 Hypomagnesemia; G89.3 Neoplasm related pain (acute) (chronic); K59.00 Constipation, unspecified; G47.00 Insomnia, unspecified; Z79.891 Long term (current) use of opiate analgesic; Z85.828 Personal history of other malignant neoplasm of skin; Z79.899 Other long term (current) drug therapy
CPT/HCPCS: J3489